=== PATIENT | female | born 1955 | race Caucasian/White ===

== ENCOUNTER 2018-08-06 10:38 | Inpatient (IN) | payer MEDICARE, OTHER ==
[~2018-08-06 10:38] MED LIST: Iopamidol 370 76% 100 ML VIAL ONE
[2018-08-06] MEDS ORDERED: Pantoprazole 40 MG VIAL ONE (11:45)
[2018-08-06 12:02] LABS: Bilirubin Small (Negative); Blood, Urine Small (Negative); Clarity TURBID (Clear); Glucose, Urine (Dipstick) Negative (Negative); Leukocyte Small (Negative); Nitrite Negative (Negative); Protein, Urine (Dipstick) Trace mg/dL (Neg-Trace); Specific Gravity, Urine 1.019 (1.002-1.036); pH, Urine 7.5 (5.0-9.0)
[2018-08-06 12:04] LABS: Hyaline Casts/LPF 4-6 HYALINE CAST LPF (0-3 Hyaline); Pathc Cast-AUWi Flag 0.72 (0-2.49)
[2018-08-06 12:05] LABS: Yeast-AUWi Flag 47.8 (0-25.0)
[2018-08-06 12:12] LABS: Bacteria/HPF 1+ HPF (None Seen); Crystals/HPF 2+ AMORPH URATES HPF (Negative); Renal Epithelial None Seen HPF (0-3); Transitional Epithelial NONE SEEN HPF (0-3); Yeast-All Forms None Seen HPF (None Seen)
[2018-08-06 12:21] LABS: Hemoglobin 7.5 g/dL (12.0-16.0); Mean Corpuscular HGB CONC 29.9 g/dL (32.0-36.0); Mean Corpuscular Hemoglobin 24.5 pg (27.0-31.0); Mean Corpuscular Volume 81.9 fL (78.0-98.0); Mean Platelet Volume 8.4 fL (7.4-10.4); Platelet Count 529 thou/uL (130-400); Red Blood Cell (RBC) Count 3.07 mill/uL (4.20-5.40); White Blood Cell (WBC) Count 10.4 thou/uL (4.8-10.8)
[2018-08-06 12:35] LABS: Band 1 % (5-11); Hypochromia SLIGHT = 6-15 cells (100X) (0-5/hpf); Lymphocytes 22 % (21-51); MDiff Complete? YES; Monocytes 6 % (0-10); Neutrophil 71 % (42-75); PLT Morphology Comment Appears Increased; Polychromasia SLIGHT = 2-3 cells (100X) (0-2/hpf)
[2018-08-06 12:41] LABS: ALT (SGPT) 117 U/L (8-55); AST (SGOT) 105 U/L (5-34); Albumin 3.6 g/dL (3.4-4.8); Alkaline Phosphatase 856 U/L (40-150); Anion Gap 12 mmol/L (10-20); BUN (Urea Nitrogen) 15 mg/dL (9.8-20.1); Bilirubin, Total 0.7 mg/dL (0.2-1.2); Calc. Creatinine Clearance 0 mL/min (70-130); Carbon Dioxide 21 mmol/L (23-31); Chloride 102 mmol/L (98-107); Estimated GFR-MDRD 84; Globulin 3.6 g/dL (2.4-3.5); Glucose 94 mg/dL (80-115); Lipase 61 U/L (8-78); Potassium 4.4 mmol/L (3.5-5.1); Protein, Total 7.2 g/dL (6.0-8.3); Sodium 131 mmol/L (136-145)
[2018-08-06 12:46] LABS: CKMB 0.8 ng/mL (0-6.6); Troponin I Less than 0.010 ng/mL (< 0.028)
--- NOTE | 2018-08-06 13:17 | ULT ---
GALLBLADDER ULTRASOUND: HISTORY: Right upper quadrant pain. FINDINGS: Real-time imaging of the upper abdomen was performed. The gallbladder is very superficial in locatio n and actually somewhat difficult to evaluate, but no stones are identified. The technologist report s a negative a negative ultrasound Heredia's sign. The common bile duct measures 8 mm, but no evidenc e of any ductal calculus. The pancreas is not well visualized. The visualized liver parenchyma is s omewhat heterogeneous but no focal lesions. The liver measures 16 cm in length. The right kidney is normal in size and not obstructed. IMPRESSION: 1. No definite signs of any gallstones. The gallbladder is somewhat difficult to visualize. The co mmon duct is slightly dilated at 8 mm. If the patient has elevated bilirubin or reason to suspect so me type of ductal calculus, CT may be helpful in further assessment. 2. Somewhat heterogeneous liver parenchyma without focal discrete abnormality. POS: FARHAD
--- NOTE | 2018-08-06 13:24 | RAD ---
CHEST TWO VIEWS: HISTORY: Epigastric chest pain. FINDINGS: Heart size and mediastinum are within normal limits. Lungs are clear of any infiltrative process. N o significant bony findings. In reviewing a previous 2010 study, I do not see any interval change. IMPRESSION: No active intrathoracic disease. Stable examination. POS: FARHAD
--- NOTE | 2018-08-06 14:30 | CT ---
CT ABDOMEN AND PELVIS WITH CONTRAST: HISTORY: Epigastric pain for four to five months. Dilated common bile duct and elevated LFTs. COMPARISON: Gallbladder ultrasound from 08/06/2018. TECHNIQUE: Multiple contiguous axial images were obtained in a CT of the abdomen and pelvis with p.o. contrast. Coronal reformats were performed. FINDINGS: There are scattered, irregular lesions throughout the liver, measuring up to 3.8 cm in size. These a re suspicious for hepatic metastases. The gallbladder is unremarkable. There is mild central intrah epatic biliary dilatation. The common bile duct is difficult to visualize. There appears to be a mass abutting the pancreas and encasing the branches of the celiac trunk. This mass measures approximately 3.9 cm in greatest dimension. Other separate masses are seen in the upp er retroperitoneum and in the region of the jhon hepatis, which likely represent enlarged lymph node s. Some of these are hypodense. The largest lymph node measures 2.1 cm in greatest dimension. No p ancreatic ductal dilatation is seen. A small amount of free fluid is seen in the pelvis. No free air is seen in the abdomen or pelvis. T he large and small bowel are unremarkable. The appendix is normal. The patient has hardware in the proximal left femur. The abdominal wall soft tissues and the visuali zed inferior thorax are unremarkable. No suspicious osseous lesions are identified. IMPRESSION: 1. Numerous lesions scattered throughout the liver are suspicious for hepatic metastases. 2. There is a mass-like lesion in the region of the jhon hepatis. The common bile duct is difficul t to visualized, and this could be causing compression on the common bile duct. Differential conside rations for this mass would include a pancreatic mass, metastatic disease to multiple enlarged lymph nodes, or a mass of either the stomach or the duodenum. There appear to be enlarged retroperitoneal and upper abdominal lymph nodes, which likely represent metastatic disease. POS: TPC
--- NOTE | 2018-08-06 16:38 | HP ---
DATE OF ADMISSION: 08/06/2018 PRIMARY CARE PHYSICIAN: Lena Donovan M.D. REASON FOR ADMISSION: Failure to thrive, abnormal LFT, metastatic cancer. HISTORY OF PRESENT ILLNESS: A 63-year-old female who is sick for the last 6 months. The patient did not have any insurance and her Medicare was not active, that is why she was not getting any medical attention. During that period, the patient was experiencing epigastric abdominal pain with acid refl ux symptoms. She was trying Tums without any significant help. Her symptoms were getting worse with food. Because of abdominal discomfort, she was afraid of eating and in this way, she initially did not lose weight, but started losing weight. She did not notice any change in bowel or bladder habit or any change in stool color. She did not have any melena, hematochezia, diarrhea or constipation. Her appetite was good, but she was not eating much because of abdominal discomfort and acid reflux sy mptoms. In June, the patient's Medicare started working and that is why she first time saw Dr. Lena zhang with this presentation. At that time, routine blood tests were done and the patient was told th at she has gastroesophageal reflux disease and Nexium was prescribed and the necessary dietary instru ction was given. The patient strictly followed medication and dietary instruction without any improv ement. During that period, the patient lost 7 pounds. The patient saw again primary care physician. At that time, she lost another 7 pounds. Medication was not changed. She was not feeling better a nd she was feeling weak and weak. She was feeling dyspnea on exertion and that is why finally she de cided to come to the emergency room for evaluation. Today in the emergency room, the patient's routine blood tests showed possible UTI, hyponatremia, abn ormal LFT and anemia. CT of the abdomen and pelvis was done, which showed numerous lesion in the bunny er suspicious for metastasis, mass-like lesion in the jhon hepatis. The patient is a longtime heavy smoker about 1-2 pack per day. She does have family history of colon cancer to her baby sister. REVIEW OF SYSTEMS: The following complete review of systems was negative, unless otherwise mentioned in the HPI or below: Constitutional: Weight loss or gain, ability to conduct usual activities. Sk in: Rash, itching. Eyes: Double vision, pain. ENT/Mouth: Nose bleeding, neck stiffness, pain, te nderness. Cardiovascular: Palpitations, dyspnea on exertion, orthopnea. Respiratory: Shortness of breath, wheezing, cough, hemoptysis, fever or night sweats. Gastrointestinal: Poor appetite, abdom inal pain, heartburn, nausea, vomiting, constipation, or diarrhea. Genitourinary: Urgency, frequenc y, dysuria, nocturia. Musculoskeletal: Pain, swelling. Neurologic/Psychiatric: Anxiety, depressio n. Allergy/Immunologic: Skin rash, bleeding tendency. Please see my HPI for pertinent positive and negative. All other review of systems reviewed and negative except as mentioned in the HPI. ALLERGIES: MORPHINE. CURRENT HOME MEDICATIONS: Nexium 40 mg daily. 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 She wa s recently diagnosed with gastroesophageal reflux disease. PAST SURGICAL HISTORY: The patient had AV malformation, which required surgery. PAST PSYCHIATRIC HISTORY: Reviewed and negative. SOCIAL HISTORY: The patient drinks alcohol occasionally and socially. She smokes about 1 pack per d ay for several years. She denies any other illicit drug abuse. FAMILY HISTORY: Positive for colon cancer to her sister. EMERGENCY ROOM COURSE: The patient is given IV fluid and Protonix. PHYSICAL EXAMINATION: VITAL SIGNS: On arrival, blood pressure 102/68, pulse 90, respiratory rate 20, temperature 98.2, sat uration 99% on room air, weight 40.8 kilograms. GENERAL: The patient is currently emaciated, thin appearing, cachectic. HEAD: Normocephalic, atraumatic. EYES: Pupils round and reactive to light. Shrunken eyeball. ENT: Oropharynx within normal limit. Pale mucous membranes. No pharyngeal erythema, no exudate. NECK: Supple, no JVD, no meningeal signs of irritation. LUNGS: Clear to auscultation without any rhonchi or rales. CARDIAC: S1, S2 regular. Soft systolic murmur noted in the precordium. No gallop, no rub. ABDOMEN: The patient does have epigastric tenderness. Mild suprapubic discomfort noted. No periton eal sign, no guarding, no rigidity, no rebound. BACK: Unremarkable. No CVA tenderness. EXTREMITIES: Upper extremities, passive movement of all joints are normal. Lower extremities, no ed anjana. Good distal pulsation. Muscular wasting noted on lower extremity. NEUROLOGIC: Nonfocal examination. Speech normal. Motor and sensation within normal limits. SKIN: Pale and warm. PSYCHIATRIC: Normal affect. HEMATOLOGIC: No lymphadenopathy. SIGNIFICANT LABORATORY DATA: EKG showing left atrial enlargement. Chest x-ray based on my review, n o acute cardiopulmonary process. CT of the abdomen and pelvis showing numerous lesion in the liver c onsistent with liver metastasis, mass-like lesion in the jhon hepatis. Abdominal ultrasound showing no gallstones. Common bile duct is slightly dilated to 8 mm. CBC, WBC 10.4, hemoglobin 7.5, platel et 529,000 with bandemia. BMP, sodium 131, potassium 4.4, chloride 102, carbon dioxide 21, anion gap 12, BUN 15, creatinine 0.70, glucose 94, calcium 9.0. LFT, AST 105, ALT 117, alkaline phosphatase 5 6, albumin 3.6, lipase 61, CK-MB 0.8, troponin less than 0.010. Urinalysis suggestive of UTI. ASSESSMENT AND PLAN: 1. Failure to thrive in adult, most likely related with underlying undiagnosed cancer with metastasi s. The patient also has cancer cachexia and poor p.o. intake secondary to abdominal pain. In this w ay, the patient has significantly lost weight and she has muscular atrophy. The patient will need nu tritional support with Ensure t.i.d. and we will address underlying etiology. 2. Moderate protein calorie malnutrition as mentioned in problem number 1. The patient will need nu tritional supplement. 3. Metastatic cancer. This patient has numerous metastases of liver. The patient also has mass in the jhon hepatitis. At this point, source primary we are suspecting either pancreatic cancer, colon cancer, stomach or duodenal cancer. The patient will need a GI evaluation for upper and lower endos copic evaluation. She may need ERCP as well. 4. Abnormal liver function tests. The patient has external compression in biliary common bile duct. Bile duct is slightly dilated. The patient has mass in the jhon hepatis. She will need Gastroent erology consultation and possible ERCP evaluation. We will repeat LFT tomorrow. We will check hepat itis profile. 5. Anemia, symptomatic. At this point, hemoglobin is 7.5. We will repeat hemoglobin tomorrow. If hemoglobin is less than 7, then we will consider blood transfusion. We will check ferritin, iron, TI BC for further evaluation. We will check stool for guaiac. Most likely, this anemia is related with anemia of chronic disease. 6. Hyponatremia, may be related with syndrome of inappropriate antidiuretic hormone secretion versus poor nutrition. 7. Urinary tract infection. We will send urine culture and start Rocephin 1 gram q.24 hours. 8. Gastroesophageal reflux disease. We will continue Protonix 40 mg twice daily. 9. Tobacco abuse disorder. Smoking cessation counseling given. Nicotine patch will be offered. 10. Deep venous thrombosis prophylaxis, Lovenox 30 mg subcutaneously daily. 11. Gastrointestinal prophylaxis, Protonix 40 mg IV b.i.d. 12. Code status, the patient is full code. The patient's is surrogate decision maker. Disposition plan based on clinical course. The patient's long-term prognosis is guarded.
[2018-08-06 17:02] VITALS: BMI 16.9
[2018-08-06] MEDS ORDERED: Zolpidem Tartrate 5 MG TAB PO PRN (17:02)
[2018-08-06] MEDS ORDERED: Diabetic Tussin 200 MG/10 ML UDCUP PO PRN (17:02)
[2018-08-06] MEDS ORDERED: Cepastat Lozenges 1 LOZ PO PRN (17:02)
[2018-08-06] MEDS ORDERED: Ondansetron PF 4 MG/2 ML Vial IVP PRN (17:02)
[2018-08-06] MEDS ORDERED: Guaifenesin DM 100-10/5 ML UDCUP PO PRN (17:02)
[2018-08-06] MEDS ORDERED: cloNIDine 0.1 MG TAB PO PRN (17:02)
[2018-08-06] MEDS ORDERED: Bisacodyl 5 MG TAB PO PRN (17:02)
[2018-08-06] MEDS ORDERED: Eucerin (Mineral Oil/Petrolatum,White) 30 gm Jar TOP PRN (17:02)
[2018-08-06] MEDS ORDERED: Loratadine 10 MG TAB PO PRN (17:02)
[2018-08-06] MEDS ORDERED: Senokot S 8.6-50 MG TAB PO PRN (17:02)
[2018-08-06] MEDS ORDERED: Sodium Chloride 0.65% Nasal 44 ML BOT EA NARE PRN (17:02)
[2018-08-06] MEDS ORDERED: hydrALAZINE 20 MG/ML VIAL SLOW IVP PRN (17:02)
[2018-08-06] MEDS ORDERED: Ondansetron ODT 4 MG TAB PO PRN (17:02)
[2018-08-06] MEDS ORDERED: Artificial Tears 18 DROP/0.9 ML EA EYE PRN (17:02)
[2018-08-06] MEDS ORDERED: Bisacodyl 10 MG SUPP PR PRN (17:02)
[2018-08-06] MEDS ORDERED: Loperamide HCl 2 MG CAP PO PRN (17:02)
[2018-08-06] MEDS ORDERED: Acetaminophen 325 MG TAB PO PRN (17:02)
[2018-08-06 17:26] LABS: Iron 15 ug/dL (50-170); Iron Binding Capacity, Total 504 mcg/dL (265-497)
[2018-08-06] MEDS: cefTRIAXone\\ROCEPHIN 1 GM in Sodium Chloride 0.9% 100 ML IVPB SCH (18:16)
[2018-08-06] MEDS: Nicotine 21 MG PATCH TD SCH (18:16)
[2018-08-06 18:21] LABS: Ferritin 32.82 ng/mL (10-291)
[2018-08-06 18:35] LABS: HBCM Index 0.09 S/CO (0-0.79); HBSAg Index 0.19 S/CO (0-0.99); Hep A IgM AB Non-Reactive (NonReactive); Hep A IgM S/CO 0.14 S/CO (0-0.79); Hep B Surf Ag Non-Reactive S/CO (NonReactive); Hep C IgG Ab Non-Reactive (NonReactive); Hep C Index 0.04 S/CO (0-0.79); Hepatitis B Core IgM Abs Non-Reactive (NonReactive)
[2018-08-06] MEDS: Fentanyl 100 MCG/2 ML VIAL SLOW IVP PRN (19:49)
[2018-08-06] MEDS: Calcium Carbonate 500 MG ChewTAB PO PRN (19:50)
[2018-08-06] MEDS: Pantoprazole 40 MG VIAL IVP SCH (20:19)
[2018-08-06] MEDS ORDERED: ALPRAZolam 0.5 MG TAB PO SCH (22:45)
--- NOTE | 2018-08-07 02:38 | CON ---
DATE OF CONSULTATION: 08/06/2018 GASTROENTEROLOGY CONSULTATION NOTE CHIEF COMPLAINT: Epigastric pain and weight loss. HISTORY OF PRESENT ILLNESS: Ms. Barnett is a 63-year-old woman who started with epigastric burning pa in that would radiate to her substernal region intermittently for starting 6 months ago. The pain in itially would last for a little while at a time, worse in the evenings for which she took Tums, which did help initially. The pain gradually became worse and worse over time. She finally went to the [facility] a few weeks ago and was started on Nexium for reflux type symptoms. She, however, continued to lose weight and have persistent pain, so she came in the emergency room and blood work and a CT scan was done. CT scan showed evidence of metastatic cancer all over the liver. There was also a mass-l delia lesion in the region of the jhon hepatis. There was a question of a pancreatic mass or mass robby r the pancreas which appears to be encasing branches of the celiac trunk. She was also noted to have severe iron deficiency anemia with hemoglobin of 7.5, MCV 81.9, ferritin of 32, iron 15, TIBC 504. She has had no visible blood in the stool. She has had no change in her stool color. She has a horacio l movement about every other day all her life; however, more recently she has had daily bowel movemen ts. She has lost 15 pounds or so over the last few weeks. Her weight was stable prior to that. PAST MEDICAL HISTORY: She states that she has been healthy all her life. She does not take medicine s on a routine basis except for every day. She takes two Tylenol every 6 hours for arthritis, pain i n her hands. PAST SURGICAL HISTORY: She had 2 melanomas removed from her arm and back around 5 years ago. 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 FAMILY HISTORY: Positive for colon cancer in her sister. SOCIAL HISTORY: She smokes a pack per day. No drugs. She drinks alcohol twice per year. REVIEW OF SYSTEMS: Negative x10 systems reviewed except as stated in the history of present illness. MEDICATIONS: Prior to admission include Nexium 40 mg daily and two Tylenol every 6 hours for the las t couple of decades. PHYSICAL EXAMINATION: VITAL SIGNS: Temperature 98.5, pulse 91, blood pressure 117/57. GENERAL: She is in no acute distress. She is cachectic. She is alert and oriented x3. HEENT: Eyes have no scleral icterus. Oropharynx is clear, without lesions. She has dry mucous memb ranes. NECK: No cervical or supraclavicular lymphadenopathy. LUNGS: Clear to auscultation bilaterally. HEART: Regular rate and rhythm. ABDOMEN: Soft, mild tenderness in the epigastric region without guarding. Bowel sounds are present. EXTREMITIES: No lower extremity edema. NEUROLOGIC: Cranial nerves are grossly intact. LABORATORY DATA: White blood cell count 10.4, hemoglobin 7.5, platelets 529, creatinine 0.7, iron 15 , TIBC 504, ferritin 32, bilirubin 0.7, AST 105, ALT 117, alkaline phosphatase 856, albumin 3.6 and l ipase 61. Viral hepatitis screen was negative. IMAGING DATA: She had a CT scan as stated in the history of present illness. She had an ultrasound which was not specific for any findings. IMPRESSION: Cancer metastatic to the liver. She has lymph nodes around the jhon hepatis and a poss ible mass encasing the celiac trunk. The CT would be more suggestive of pancreatic cancer, possibly or biliary cancer; however, given the iron deficiency anemia and her symptoms of epigastric burning p ain and inability to eat, gastric cancer needs to be ruled out. She does have a family history of co dominik cancer; however, she would not tolerate a bowel prep at this time due to the volume. RECOMMENDATIONS: 1. We will plan EGD for tomorrow. 2. If the endoscopy is negative, then plan liver biopsy in the next day for diagnosis. 3. ERCP is not indicated at this time as her bilirubin is normal and the elevated alkaline phosphata se is likely due to metastatic disease to the liver, rather than just a single compression of the mor e distal bile ducts. 4. We will consider checking tumor markers pending results of endoscopy.
[2018-08-07 04:36] LABS: ALT (SGPT) 102 U/L (8-55); AST (SGOT) 92 U/L (5-34); Albumin 3.2 g/dL (3.4-4.8); Alkaline Phosphatase 762 U/L (40-150); Anion Gap 10 mmol/L (10-20); BUN (Urea Nitrogen) 9 mg/dL (9.8-20.1); Bilirubin, Total 0.7 mg/dL (0.2-1.2); Calc. Creatinine Clearance 57 mL/min (70-130); Calcium 8.7 mg/dL (7.8-10.44); Carbon Dioxide 25 mmol/L (23-31); Chloride 104 mmol/L (98-107); Estimated GFR-MDRD Greater than 90; Globulin 3.2 g/dL (2.4-3.5); Glucose 98 mg/dL (80-115); Potassium 4.2 mmol/L (3.5-5.1); Protein, Total 6.4 g/dL (6.0-8.3); Sodium 135 mmol/L (136-145)
[2018-08-07 05:12] LABS: Hemoglobin 6.8 g/dL (12.0-16.0); Mean Corpuscular HGB CONC 31.6 g/dL (32.0-36.0); Mean Corpuscular Hemoglobin 25.5 pg (27.0-31.0); Mean Corpuscular Volume 80.9 fL (78.0-98.0); Mean Platelet Volume 8.5 fL (7.4-10.4); Platelet Count 494 thou/uL (130-400); RBC Distribution Width 14.8 % (11.5-14.5); Red Blood Cell (RBC) Count 2.65 mill/uL (4.20-5.40); White Blood Cell (WBC) Count 9.5 thou/uL (4.8-10.8)
[2018-08-07 05:13] LABS: Anisocytosis SLIGHT = 6-15 cells (100X) (0-5/hpf); Band 4 % (5-11); Eosinophils 2 % (0-10); Hypochromia SLIGHT = 6-15 cells (100X) (0-5/hpf); Lymphocytes 22 % (21-51); MDiff Complete? YES; Monocytes 8 % (0-10); Neutrophil 64 % (42-75)
[2018-08-07] MEDS ORDERED: Enoxaparin Sodium 30 MG/0.3 ML SYRINGE SC SCH (09:00)
[2018-08-07] MEDS: Pantoprazole 40 MG VIAL IVP SCH ×2 (09:12→20:00)
--- NOTE | 2018-08-07 09:45 | PDOC.PN ---
- Subjective Encounter Start Date: 08/07/18 Encounter Start Time: 08:50 -: old records requested/rev Patient seen and examined. No new complaints. No overnight events pt is weak, she wants herself DNR, family bedside - Objective Resuscitation Status: Resuscitation Status DNR:Do Not Resuscitate MAR Reviewed: Yes Vital Signs & Weight: Vital Signs (12 hours) Temp Pulse Resp BP BP Pulse Ox 08/07/18 07:55 97.5 F L 88 16 105/57 L 100 08/07/18 04:00 98.0 F 86 16 106/58 L 98 08/06/18 22:40 98.0 F 90 16 134/65 100 Weight Weight 90 lb Result Diagrams: 08/07/18 04:00 08/07/18 04:00 Phys Exam - Physical Examination Constitutional: NAD cachectic HEENT: PERRLA, moist MMs, sclera anicteric pallor+ Neck: no nodes, no JVD, supple Respiratory: no wheezing, no rales, no rhonchi Cardiovascular: RRR, no rub SM+ Gastrointestinal: soft, no distention, positive bowel sounds epigastric tenderness Musculoskeletal: no edema, pulses present Neurological: non-focal, normal sensation, moves all 4 limbs Psychiatric: normal affect, A&O x 3 Skin: no rash, normal turgor Dx/Plan (1) Abnormal LFTs Code(s): R94.5 - ABNORMAL RESULTS OF LIVER FUNCTION STUDIES Status: Acute (2) Failure to thrive in adult Status: Acute (3) Hyponatremia Code(s): E87.1 - HYPO-OSMOLALITY AND HYPONATREMIA Status: Acute (4) Iron deficiency anemia Code(s): D50.9 - IRON DEFICIENCY ANEMIA, UNSPECIFIED Status: Acute (5) Metastasis to liver with unknown primary site Code(s): C78.7 - SECONDARY MALIG NEOPLASM OF LIVER AND INTRAHEPATIC BILE DUCT; C80.1 - MALIGNANT (PRIMARY) NEOPLASM, UNSPECIFIED Status: Acute (6) Protein-calorie malnutrition, moderate Code(s): E44.0 - MODERATE PROTEIN-CALORIE MALNUTRITION Status: Acute (7) UTI (urinary tract infection) Status: Acute (8) GERD (gastroesophageal reflux disease) Code(s): K21.9 - GASTRO-ESOPHAGEAL REFLUX DISEASE WITHOUT ESOPHAGITIS Status: Chronic (9) Tobacco abuse Code(s): Z72.0 - TOBACCO USE Status: Chronic - Plan cont current plan of care, plan discussed w/ family, continue antibiotics * transfuse 1 unit PRBC * code status changed to DNR * medication reviewed as below * symptomatic treatment * she wanted to be comfortable * today EGD * will consult palliative care * ACP discussion done bedside. Review of Systems - Review of Systems Constitutional: weakness, malaise. negative: fever, chills, sweats, other ENT: negative: Ear Pain, Ear Discharge, Nose Pain, Nose Discharge, Nose Congestion, Mouth Pain, Mouth Swelling, Throat Pain, Throat Swelling, Other Respiratory: negative: Cough, Dry, Shortness of Breath, Hemoptysis, SOB with Excertion, Pleuritic Pain, Sputum, Wheezing Cardiovascular: negative: chest pain, palpitations, orthopnea, paroxysmal nocturnal dyspnea, edema, light headedness, other Gastrointestinal: Nausea, Abdominal Pain. negative: Vomiting, Diarrhea, Constipation, Melena, Hematochezia, Other Genitourinary: negative: Dysuria, Frequency, Incontinence, Hematuria, Retention , Other Musculoskeletal: negative: Neck Pain, Shoulder Pain, Arm Pain, Back Pain, Hand Pain, Leg Pain, Foot Pain, Other Skin: negative: Rash, Lesions, Yeison, Bruising, Other - Medications/Allergies Allergies/Adverse Reactions: Allergies Allergy/AdvReac Type Severity Reaction Status Date / Time morphine AdvReac Verified 08/23/16 20:47 Medications: Current Medications Acetaminophen (Tylenol) 650 mg PO Q4H PRN PRN Reason: Headache/Fever/Mild Pain (1-3) Artificial Tears (Tears Naturale) 2 drop EA EYE PRN PRN PRN Reason: Dry Eyes Bisacodyl (Dulcolax) 10 mg [place] DAILYPRN PRN PRN Reason: Constipation Bisacodyl (Dulcolax) 10 mg PO DAILYPRN PRN PRN Reason: Constipation Calcium Carbonate (Tums) 1,000 mg PO Q4H PRN PRN Reason: Heartburn or Indigestion Last Admin: 08/06/18 19:50 Dose: 1,000 mg Clonidine (Catapres) 0.1 mg PO Q4H PRN PRN Reason: SBP > ____ Cyanocobalamin (Vitamin B-12) 1,000 mcg PO DAILY [facility] Enoxaparin Sodium (Lovenox) 30 mg SC 0900 [facility] Fentanyl (Sublimaze) 25 mcg SLOW IVP Q2H PRN PRN Reason: Pain Last Admin: 08/06/18 19:49 Dose: 25 mcg Ferrous Sulfate (Feosol) 325 mg PO QAM-[facility] Folic Acid (Folvite) 1 mg PO DAILY [facility] Guaifenesin (Robitussin Sf) 200 mg PO Q4H PRN PRN Reason: Cough Guaifenesin/Dextromethorphan (Robitussin Dm) 15 ml PO Q4H PRN PRN Reason: Cough Hydralazine HCl (Apresoline) 10 mg SLOW IVP Q4H PRN PRN Reason: SBP > 180 and HR < 70 Ceftriaxone Sodium 1 gm/ (Sodium Chloride) 100 mls @ 200 mls/hr IVPB Q24HR [facility] Last Admin: 08/06/18 18:16 Dose: 100 mls Loperamide HCl (Imodium) 2 mg PO PRN PRN PRN Reason: Diarrhea/Loose Stools Loratadine (Claritin) 10 mg PO DAILYPRN PRN PRN Reason: Sinus Symptoms Mineral Oil/White Petrolatum (Eucerin Cream) 0 gm TOP BIDPRN PRN PRN Reason: Dry Skin Nicotine (Nicoderm Patch) 21 mg TD Q24HR [facility] Last Admin: 08/06/18 18:16 Dose: 21 mg Ondansetron HCl (Zofran Odt) 4 mg PO Q6H PRN PRN Reason: Nausea/Vomiting Ondansetron HCl (Zofran) 4 mg IVP Q6H PRN PRN Reason: Nausea/Vomiting Pantoprazole Sodium (Protonix) 40 mg IVP Q12HR [facility] Last Admin: 08/07/18 09:12 Dose: 40 mg Saccharomyces Boulardii (Florastor) 250 mg PO DAILY [facility] Senna/Docusate Sodium (Senokot S) 2 tab PO BID PRN PRN Reason: Constipation Sodium Chloride ([place] Nasal [place] 0.65%) 0 ml EA NARE QIDPRN PRN PRN Reason: Nasal Congestion Sodium Chloride (Flush - Normal Saline) 10 ml IVF Q12HR [facility] Last Admin: 08/07/18 09:12 Dose: 10 ml Sodium Chloride (Flush - Normal Saline) 10 ml IVF PRN PRN PRN Reason: Saline Flush Last Admin: 10/31/18 09:12 Dose: 10 ml Throat Lozenges (Cepastat Lozenges) 1 aroldo PO Q2H PRN PRN Reason: Sore Throat Zolpidem Tartrate (Ambien) 5 mg PO HSPRN PRN PRN Reason: Insomnia
--- NOTE | 2018-08-07 09:49 | PDOC.EVN ---
Event Note - Event Note Event Note: advance care planning discussion note pt, her sister and her present bedside I have discussed with them about current likely diagnosis, and plan of care as he has likely metastatic cancer, I discussed with them about goal of care and code status I have given necessary information to patient about meaning of DNR and as well as information about palliation She decided in presence of all family that she does not want any heroic measure in case of cardiopulmonary arrest and wanted to be DNR she also decided that she wanted to be comfortable and hydrated and fed in her end of life, she thinks that she can not handle any chemotherapy at this point based on how she is. palliative care consulted. total time spent 20 minutes to discuss ACP discussion in addition to regular visit.
[2018-08-07] MEDS: Saccharomyces boulardii 250 MG CAP PO SCH (10:40)
[2018-08-07] MEDS: Cyanocobalamin (Vitamin B-12) 1,000 MCG TAB PO SCH (10:40)
[2018-08-07] MEDS: Folic Acid 1 MG TAB PO SCH (10:40)
[2018-08-07] MEDS ORDERED: Lorazepam 2 MG/ML VIAL SLOW IVP PRN (11:20)
[2018-08-07] MEDS ORDERED: Midazolam HCl 2 mg/2 ml Vial ONE (13:33)
[2018-08-07] MEDS: Calcium Carbonate 500 MG ChewTAB PO PRN (16:31)
[2018-08-07] MEDS: Ferrous Sulfate 325 MG TAB PO SCH (16:31)
[2018-08-07] MEDS ORDERED: PROPOFOL 200 MG/20 ML VIAL ONE (17:22)
[2018-08-07] MEDS ORDERED: Lidocaine 1% PF 5 ML VIAL ONE (17:22)
[2018-08-07] MEDS: Nicotine 21 MG PATCH TD SCH (17:47)
[2018-08-07] MEDS: cefTRIAXone\\ROCEPHIN 1 GM in Sodium Chloride 0.9% 100 ML IVPB SCH (17:47)
[2018-08-07] MEDS: Fentanyl 100 MCG/2 ML VIAL SLOW IVP PRN (18:02)
[2018-08-08] MEDS: Calcium Carbonate 500 MG ChewTAB PO PRN ×2 (04:57→14:28)
[2018-08-08 05:28] LABS: #Basophils 0.1 thou/uL (0.0-0.2); #Eosinphils 0.1 thou/uL (0.0-0.7); #Lymphocytes 1.8 thou/uL (1.20-3.40); #Monocytes 0.8 thou/uL (0.11-0.59); #Neutrophils 5.4 thou/uL (1.40-6.50); %Basophils 1.2 % (0.0-1.0); %Eosinophils 1.8 % (0.0-10.0); %Lymphocytes 21.4 % (21.0-51.0); %Monocytes 9.9 % (0.0-10.0); %Neutrophils 65.8 % (42.0-75.0); Hemoglobin 9.1 g/dL (12.0-16.0); Mean Corpuscular HGB CONC 31.1 g/dL (32.0-36.0); Mean Corpuscular Volume 83.4 fL (78.0-98.0); Mean Platelet Volume 8.8 fL (7.4-10.4); Platelet Count 487 thou/uL (130-400); RBC Distribution Width 15.3 % (11.5-14.5); White Blood Cell (WBC) Count 8.2 thou/uL (4.8-10.8)
[2018-08-08 05:33] LABS: INR-International Normal Ratio 0.9; Prothrombin Time 11.9 SEC (12.0-14.7)
[2018-08-08 05:44] LABS: ALT (SGPT) 96 U/L (8-55); AST (SGOT) 81 U/L (5-34); Albumin 3.4 g/dL (3.4-4.8); Alkaline Phosphatase 861 U/L (40-150); Anion Gap 11 mmol/L (10-20); BUN (Urea Nitrogen) 9 mg/dL (9.8-20.1); Bilirubin, Total 0.8 mg/dL (0.2-1.2); Calc. Creatinine Clearance 51 mL/min (70-130); Calcium 9.2 mg/dL (7.8-10.44); Carbon Dioxide 24 mmol/L (23-31); Chloride 104 mmol/L (98-107); Estimated GFR-MDRD 83; Globulin 3.5 g/dL (2.4-3.5); Glucose 95 mg/dL (80-115); Protein, Total 6.9 g/dL (6.0-8.3); Sodium 135 mmol/L (136-145)
[2018-08-08] MEDS: Pantoprazole 40 MG VIAL IVP SCH (07:36)
[2018-08-08] MEDS ORDERED: Sodium Bicarbonate 2.5 MEQ/5 ML VIAL ONE (08:33)
[2018-08-08] MEDS ORDERED: Midazolam HCl 2 mg/2 ml Vial ONE (08:34)
[2018-08-08] MEDS ORDERED: Fentanyl 100 MCG/2 ML VIAL ONE (08:34)
[2018-08-08 10:12] VITALS: BP 123/58; TEMP 97.5
[2018-08-08] MEDS: Saccharomyces boulardii 250 MG CAP PO SCH (10:18)
[2018-08-08] MEDS: Cyanocobalamin (Vitamin B-12) 1,000 MCG TAB PO SCH (10:19)
[2018-08-08] MEDS: Folic Acid 1 MG TAB PO SCH (10:19)
[2018-08-08] MEDS: Ferrous Sulfate 325 MG TAB PO SCH (10:19)
--- NOTE | 2018-08-08 11:31 | CT ---
CT GUIDED HEPATIC BIOPSY: HISTORY: Multiple hepatic lesions. FINDINGS: Informed consent was obtained from the patient. The liver was localized using CT guidance. The over lying skin was prepped and draped in the usual sterile manner. A 1% Lidocaine solution was used to a nesthetize the overlying soft tissues. A small dermatotomy was made. An outer 17-gauge needle was p laced into the right inferior hepatic lesion. Three 2.2 cm core biopsies obtained without difficulty . The specimen was sent to pathology. Initial Touch Prep suggests the presence of malignant cells. IMPRESSION: Successful CT-guided liver biopsy. After the biopsy was completed and before the outer needle was re moved, a gelfoam pledget was introduced into the biopsy tract. Pathology is pending. POS: FARHAD
[2018-08-08] MEDS ORDERED: Polyethylene Glycol 3350 17 GM Packet PO SCH (13:30)
[2018-08-08] MEDS ORDERED: cefTRIAXone\\ROCEPHIN 1 GM in Sodium Chloride 0.9% 100 ML IVPB SCH (14:00)
[2018-08-08] MEDS ORDERED: Senokot S 8.6-50 MG TAB PO SCH (21:00)
[2018-08-09] MEDS ORDERED: Polyethylene Glycol 3350 17 GM Packet PO SCH (09:00)
--- NOTE | 2018-08-09 12:29 | DIS ---
DATE OF DISCHARGE: 08/08/2018 DISCHARGE DISPOSITION: Home. FOLLOWUP: Follow up with primary care physician, Dr. Lena Donovan in 1 week. Follow up with Dr. Reinaldo Galeas in 1 week for liver biopsy report. The patient was advised to follow up on tumor markers. ALLERGIES: The patient is allergic MORPHINE. DISCHARGE MEDICATIONS: 1. Ciprofloxacin 250 mg twice a day for the next 2 more days. 2. Multivitamin, folic acid and vitamin B12. 3. Pepcid 40 mg at bedtime. The patient was seen and examined on the day of discharge. Denies any new complaints. No chest pain, shortness of breath, palpitations reported. INPATIENT PROCEDURES: 1. The patient underwent EGD that was essentially negative per verbal report. Official report pending at this time. 2. On 08/08/2018, the patient underwent CT guided liver biopsy. 3. Abdominal ultrasound on 08/06/2018 showed common duct slightly dilated at 8 mm. DIAGNOSTIC TESTS: 1. CT abdomen and pelvis with contrast showed numerous lesions scattered throughout the liver suspicious for hepatic metastasis. There was also a mass- like lesion in the region of the jhon hepatis. 2. Chest x-ray was negative for acute findings. BRIEF HOSPITAL COURSE: The patient is a 63-year-old female with GERD, presented to the emergency room with epigastric pain and weight loss. Her workup was consistent with liver metastasis. She underwent EGD as well as CT guided liver biopsy. A CEA was 112. CA 19-9 is pending at the time of discharge. She has been cleared by hotel maintenance technician, Dr. Reinaldo Galeas for discharge. She will follow up with Dr. Galeas for the biopsy report. FINAL DIAGNOSES: 1. Metastatic cancer to the liver, suspected pancreatic versus colon cancer. 2. Failure to thrive. 3. Abnormal liver function tests secondary to liver metastasis. 4. Hyponatremia. 5. Iron deficiency anemia. 6. Moderate protein calorie malnutrition. 7. Urinary tract infection. 8. Gastroesophageal reflux disease. 9. Tobacco dependence. Patient was counseled. Plan of care was discussed with the patient and the family in detail. They stated understanding. MTDD
== END 2018-08-08 15:47 | disposition home or self-care (01) | DRG 436 ==
LOC: ERS 10:38 → ONC 15:23
PROVIDERS: ADMIT Internal Medicine; ATTEND Internal Medicine
PROC: 30233N1 Transfusion of Nonautologous Red Blood Cells into Peripheral Vein, Percutaneous Approach (ICD-10-PCS; principal; 2018-08-07)
PROC: 0FB13ZX Excision of Right Lobe Liver, Percutaneous Approach, Diagnostic (ICD-10-PCS; 2018-08-08)
DX: C78.7 Secondary malignant neoplasm of liver and intrahepatic bile duct (principal); E87.1 Hypo-osmolality and hyponatremia; E44.0 Moderate protein-calorie malnutrition; N39.0 Urinary tract infection, site not specified; Z68.1 Body mass index [BMI] 19.9 or less, adult; R94.5 Abnormal results of liver function studies; R62.7 Adult failure to thrive; D50.9 Iron deficiency anemia, unspecified; K21.9 Gastro-esophageal reflux disease without esophagitis; F17.210 Nicotine dependence, cigarettes, uncomplicated
CPT/HCPCS: 36415; 36430; 47000; 71046; 74177; 76705; 77002; 80053; 80074; 81003; 81015; 82378; 82553; 82728; 83540; 83550; 83690; 84484; 85025; 85610; 86301; 86850; 86900; 86901; 87086; 88307; 88333; 88341; 88342; 93005; 96361; 96374; 99406; C9113; J0696; J2001; J2060; J2250; J2704; J3010; J7050; P9016

== ENCOUNTER 2018-08-23 12:10 | Outpatient (CLI) | payer MEDICARE ==
[2018-08-23] MEDS ORDERED: Iopamidol 370 76% 100 ML VIAL ONE (12:33)
--- NOTE | 2018-08-23 15:08 | CT ---
CONTRAST ENHANCED CT CHEST: HISTORY: History of liver metastases. Pancreatic mass. Complaining of indigestion and epigastric pain. FINDINGS: Contrast-enhanced CT images of the chest demonstrate numerous lug parenchymal metastatic lesions all subcentimeter in the upper and lower lobes too numerous to count individually. Emphysematous changes seen in the upper lobes of the lungs. No evidence of mediastinal, hilar, or axillary lymphadenopathy seen. Coronary artery calcifications seen. Numerous hepatic parenchymal lesions seen compatible with extensive liver metastatic lesions and dise ase. There are some areas of hypodensity also in the pancreatic head. No definite evidence of osseo us metastatic lesions seen. IMPRESSION: 1. Numerous lung parenchymal subcentimeter nodules compatible with extensive lung metastatic disease . No definite evidence of mediastinal, axillary, or hilar lymphadenopathy seen. 2. Extensive liver metastases. POS: FARHAD
== END 2018-08-23 12:11 | disposition home or self-care (01) ==
LOC: BICCT 12:10
PROVIDERS: ATTEND Internal Medicine Hematology & Oncology
DX: C22.9 Malignant neoplasm of liver, not specified as primary or secondary (principal); C80.1 Malignant (primary) neoplasm, unspecified
CPT/HCPCS: 71260

== ENCOUNTER 2018-09-04 10:47 | Day surgery (SDC) | payer MEDICARE ==
[2018-09-03 12:50] VITALS: BMI 16.1
[~2018-09-04 10:47] MED LIST changes: -Iopamidol 370 76% 100 ML VIAL ONE; +PROPOFOL 200 MG/20 ML VIAL ONE
--- NOTE | 2018-09-04 22:03 | OP ---
DATE OF PROCEDURE: 09/04/2018 PROCEDURE: Colonoscopy with biopsy. PREOPERATIVE DIAGNOSES: 1. Iron deficiency anemia. 2. Metastatic adenocarcinoma. DESCRIPTION OF PROCEDURE: Informed consent was obtained. The patient was sedated with total intravenous anesthesia. The colonoscope was advanced up to hepatic flexure where a near obstructing mass was encountered. This created a kink in the colon in that area such that the colonoscope could not be passed beyond the mass. Biopsies were obtained from the mass. There were scattered diminutive polyps that were left alone in the colon. Retroflexed views in the rectum revealed ulcers in the distal rectum at the dentate line, which were biopsied. IMPRESSION: 1. Mass at the hepatic flexure, near obstructing, preventing passage of the scope proximal to that point. Biopsies were obtained. 2. Ulceration in the distal rectum just above the dentate line, biopsied. These are likely stercoral or ischemic type ulcers. 3. Scattered diminutive polyps left alone. RECOMMENDATIONS: 1. Await histopathology. 2. Follow up with Dr. Jeet Mcintyre with Oncology. Job ID: [id number]
== END 2018-09-04 14:39 | disposition home or self-care (01) ==
LOC: SDC 10:47
PROVIDERS: ATTEND Internal Medicine Gastroenterology
PROC: 0DBP8ZX Excision of Rectum, Via Natural or Artificial Opening Endoscopic, Diagnostic (ICD-10-PCS; principal; 2018-09-04)
PROC: 0DBL8ZX Excision of Transverse Colon, Via Natural or Artificial Opening Endoscopic, Diagnostic (ICD-10-PCS; 2018-09-04)
DX: C18.3 Malignant neoplasm of hepatic flexure (principal); C78.7 Secondary malignant neoplasm of liver and intrahepatic bile duct; D50.9 Iron deficiency anemia, unspecified; K63.5 Polyp of colon; K62.6 Ulcer of anus and rectum; F17.210 Nicotine dependence, cigarettes, uncomplicated; Z79.891 Long term (current) use of opiate analgesic; Z79.899 Other long term (current) drug therapy
CPT/HCPCS: 88305; J2704

== ENCOUNTER 2018-09-13 09:32 | Day surgery (SDC) | payer MEDICARE, OTHER ==
[2018-09-12 11:20] VITALS: BMI 16.2
[2018-09-13] MEDS ORDERED: Famotidine/PF 20 mg/2ml Vial ONE (10:54)
[2018-09-13] MEDS ORDERED: Bupivacaine/Epinephrine 0.25% 30 ML VIAL ONE (11:00)
[2018-09-13] MEDS ORDERED: Lidocaine 2% PF 5 ML VIAL ONE (11:00)
[2018-09-13] MEDS ORDERED: CEFAZOLIN 2 GM/50 ML BAG ONE (11:22)
[2018-09-13] MEDS ORDERED: Fentanyl 100 MCG/2 ML VIAL ONE (11:35)
[2018-09-13] MEDS ORDERED: Midazolam HCl 2 mg/2 ml Vial ONE (11:35)
[2018-09-13] MEDS ORDERED: PROPOFOL 200 MG/20 ML VIAL ONE (12:54)
[2018-09-13] MEDS ORDERED: Ondansetron PF 4 MG/2 ML Vial ONE (12:54)
[2018-09-13] MEDS ORDERED: Lidocaine 1% PF 5 ML VIAL ONE (12:54)
[2018-09-13] MEDS ORDERED: traMADol HCl 50 MG TAB ONE (13:10)
--- NOTE | 2018-09-13 14:22 | RAD ---
FRONTAL VIEW CHEST: COMPARISON: 08/23/2016. INDICATION: Status post MediPort placement. FINDINGS: There is a right side MediPort with tip overlying SVC region. No postprocedural pneumothorax of sign ificance is present. No shift of the midline structures. Cardiac silhouette is normal in size. No free air beneath the hemidiaphragms. IMPRESSION: No postprocedural pneumothorax of significance visualized within the right chest status post MediPort placement. POS: NWK
--- NOTE | 2018-09-15 21:18 | OP ---
DATE OF PROCEDURE: 09/13/2018 PREOPERATIVE DIAGNOSIS: Colon cancer, metastatic. POSTOPERATIVE DIAGNOSIS: Colon cancer, metastatic. PROCEDURES PERFORMED: Right internal jugular vein tunneled subcutaneous port (MediPort CT-injectable, low-profile). ANESTHESIA: General. ESTIMATED BLOOD LOSS: Minimal. COMPLICATIONS: None. SPECIMEN: None. FINDINGS: Tip of the catheters at atriocaval junction. DESCRIPTION OF PROCEDURE: The patient was taken to the operating room and laid supine on the operating table. After general anesthetic with LMA was obtained, the bilateral neck and chest were prepped and draped in a sterile fashion. Local anesthetic was infiltrated over the right intrajugular vein. Intrajugular vein was cannulated using a 22-gauge spinal needle, followed by Seldinger needle. Wire was passed into the superior vena cava under fluoro guidance. A stab incision was made at the wire entrance site. A separate 3 cm incision was made in the right upper chest. Subcutaneous pocket was made below the lower incision. tunneled from the inferior to the superior incision, and suture sheath was placed over the wire into the superior vena cava under fluoro guidance. The dilator and wire were removed, the end of the catheter was sheath. The sheath was peeled away from the tip of the catheters at the atriocaval junction. The MediPort tubing was cut to fit the MediPort at the lower incision, connected the MediPort. The MediPort sewn to the chest wall and subcutaneous pocket using Prolene. MediPort flushes and draws blood without difficulty. It was flushed with a heparin flush. All incisions were irrigated and closed in 3-0 Vicryl, 4-0 Monocryl, and Dermabond. The patient was sent to Recovery in stable condition. All instrument counts, needle counts, and lap counts are correct. Job ID: [id number]
== END 2018-09-13 13:25 | disposition home or self-care (01) ==
LOC: SDC 09:32
PROVIDERS: ATTEND Surgery
PROC: 0JH63WZ Insertion of Totally Implantable Vascular Access Device into Chest Subcutaneous Tissue and Fascia, Percutaneous Approach (ICD-10-PCS; principal; 2018-09-13)
DX: C18.9 Malignant neoplasm of colon, unspecified (principal); C79.9 Secondary malignant neoplasm of unspecified site; Z98.890 Other specified postprocedural states; Z79.899 Other long term (current) drug therapy
CPT/HCPCS: 36561; 71045; C1788; J1642; J2001; J2250; J2405; J2704; J3010; S0028